=== PATIENT | male | born 1940 | race Caucasian/White ===

== ENCOUNTER → 2017-02-17 | Outpatient (CLI) | payer MEDICARE, BC | END | disposition home or self-care (01) | LOC: CDC 15:04 | DX: R94.31 Abnormal electrocardiogram [ECG] [EKG] (principal); K40.90 Unilateral inguinal hernia, without obstruction or gangrene, not specified as recurrent | CPT/HCPCS: 93000 ==

== ENCOUNTER 2017-03-09 08:05 | Day surgery (SDC) | payer OTHER, BC ==
[~2017-03-09] VITALS: Ht 180.3 cm; Wt 99.8 kg
[~2017-03-09 08:05] MED LIST: AVODART0.5 MG PO; BENADRYL25 MG PO; FLOMAX0.4 MG PO; LATANOPROST2.5 ML BOTH EYES; LIPITOR10 MG PO; LO-DOSE ASPIRIN81 M2 PO; ROCALTROL0.5 MCG PO
[2017-03-09 08:38] VITALS: BP 146/82
[2017-03-09] MEDS ORDERED: PERCOCET 5/31 TABLET PO (11:38)
[2017-03-09 12:50] VITALS: BP 140/75
[2017-03-09 13:44] VITALS: BP 142/68
== END 2017-03-09 13:58 | disposition home or self-care (01) ==
LOC: SDC 08:05
PROC: 0YU60JZ Supplement Left Inguinal Region with Synthetic Substitute, Open Approach (ICD-10-PCS; principal; 2017-03-09)
DX: K40.30 Unilateral inguinal hernia, with obstruction, without gangrene, not specified as recurrent (principal); Z79.82 Long term (current) use of aspirin; Z87.891 Personal history of nicotine dependence; Z85.828 Personal history of other malignant neoplasm of skin
CPT/HCPCS: 88302; C1781; J0690; J1100; J2250; J2405; J3010